=== PATIENT | male | born 1985 | race Caucasian/White ===

== ENCOUNTER 2016-06-30 14:24 | Emergency (ER) | payer OTHER ==
[2016-06-30 14:34] VITALS: BP 117/68; PULSE 70; RESP 16; O2SAT 100
[2016-06-30] MEDS ORDERED: TdaP Vaccine 0.5 mL Inj IM ONE (16:20)
--- NOTE | 2016-06-30 16:25 | ED.REPORT ---
HPI-General Illness Date of Service Jun 30, 2016 ED Provider: Luther Fang PA-C Damian is an otherwise healthy 30-year-old inmate at the [facility] who presents with a chin laceration. He states he tripped while walking up stairs and struck his chin against the floor. Denies losing consciousness, headache, vomiting, seizure, use of blood thinners, bleeding/clotting disorders. Denies dental or neck injury. Denies numbness or tingling in his extremities. Denies diabetes, HIV, immunosuppression. He is unsure of his tetanus status. Nursing Notes Stated Complaint: CHIN LAC Chief Complaint: Laceration Nursing Notes Reviewed: Yes Allergies: Coded Allergies: No Known Allergies (Unverified , 01/14/15) General Time Seen by MD: 14:49 Chief Complaint Laceration Past Medical History Past Medical History denies Smoking History Current Every Day Smoker Review of Systems Negative unless stated otherwise in history of present illness Physical Exam General: Well appearing, well developed, well nourished, no acute distress. Head: Atraumatic, normocephalic. Jaw: 1 cm laceration near apex of the mandible. Base is well visualized. No foreign bodies. Eyes: No scleral icterus or injection. No discharge. Vision grossly intact. ENT: Edentulous in the mandible. Poor dentition maxillary with many caries. Small amount of blood noted near the base of tooth #2. Voice clear, hearing grossly intact. Neck: Excellent range of motion. Respiratory: No respiratory distress, no increased work of breathing. Speaks in complete sentences. Skin: Warm and dry. Neurological: Grossly nonfocal. Psychological: alert and oriented. Speech appropriate, linear and logical. Behavior appropriate. Vital Signs Vital Signs Date Time Temp Pulse Resp B/P Pulse Ox O2 Delivery O2 Flow Rate FiO2 06/30/16 14:34 36.1 70 16 117/68 100 Room Air Initial VS: Reviewed, Vital signs abnormal Procedures Laceration Management Laceration Management: Once any her chin laceration. Procedure Performed by: Allied health pract Consent / Setup / Site Prep: Informed consent provided, Consent from patient , Time-out performed, Hand hygiene observed Wound Length: 1 cm Local Anesthesia: Lidocaine 1%, 2cc, 27g needle Wound Preparation: Hibiclens - Chlorhexidine Repair Skin: Nylon (5-0) # Sutures - Skin: 3 Suture Technique: Simple Post-Procedure / Complications: Antibiotic oint applied Re-Eval/Medical Decision Med Decision/Clinical Course Otherwise healthy 30-year-old male presents with a 1cm chin laceration which occurred after a trip and fall. Patient denies loss of consciousness or red flags for intracranial injury. Denies neck pain, neurological deficits. Denies dental trauma. Denies comorbidities or allergies. Unsure of tetanus status. Closed with 3 interrupted sutures. Patient declined to have a dressing applied due to the difficulty of the location and his li. Provided follow-up instructions, emergency return precautions. Patient understands and agrees with the plan. Discharge & Departure Primary Impression: Laceration Disposition: Home Discharge Condition All VS Reviewed: Yes Condition: Stable Patient Instructions: Suture Care (ED) Additional Instructions: Evaluation in the emergency department for a laceration. This appears to be a clean wound. I see no indication for antibiotics at this time. Likewise there is no evidence of dental, brain, neck injury you have told me that you are unsure of her tetanus status. We have provided U with a tetanus booster. We have cleaned, and sutured the wound. It is a difficult place to apply a dressing, and you have declined one. Feel free to clean the wound with soap and water. Please do not submerge the wound as in swimming or soaking in a tub until you have the sutures removed. The pain is best treated with 400 mg of ibuprofen (Advil, Motrin) every 6 hours , or 1000 mg of acetaminophen (Tylenol) every 6 hours. These drugs can be taken at the same time for more severe pain. Be vigilant for signs of infection. While a small amount of redness, tenderness and clear or pink drainage is normal, any increasing pain, redness, swelling or the appearance of pus suggests infection. More severe infection as suggested by symptoms such as fever, chills, feeling ill, racing heart. Please return to emergency Department if you notice signs of infection. Follow-up with your primary care provider or return to the emergency department in 5 days for suture removal. Referrals: NOPCP (PCP) EDSupervising Provider for APC: Bandar Chaney MD, Seth PA-C Jun 30, 2016 16:25
== END 2016-06-30 17:04 | disposition home or self-care (01) ==
LOC: SED 14:24
DX: S01.81XA Laceration without foreign body of other part of head, initial encounter (principal); W01.198A Fall on same level from slipping, tripping and stumbling with subsequent striking against other object, initial encounter; Y93.01 Activity, walking, marching and hiking; Y92.89 Other specified places as the place of occurrence of the external cause; Y99.8 Other external cause status; F17.200 Nicotine dependence, unspecified, uncomplicated; Z23 Encounter for immunization